=== PATIENT | male | born 1955 | race Two or more races ===

== ENCOUNTER 2018-06-05 13:30 | Emergency (ER) | payer OTHER ==
[~2018-06-05] VITALS: Ht 193 cm; Wt 113.4 kg
[2018-06-05] MEDS ORDERED: METFORMIN HCL500 MG PO (13:47)
[2018-06-05] MEDS ORDERED: PREVACID15 MG PO (13:48)
== END 2018-06-05 16:02 | disposition home or self-care (01) ==
LOC: ER 13:30
DX: S40.012A Contusion of left shoulder, initial encounter (principal); M25.512 Pain in left shoulder; W22.8XXA Striking against or struck by other objects, initial encounter; Y93.11 Activity, swimming; Y92.832 Beach as the place of occurrence of the external cause; Y99.8 Other external cause status